=== PATIENT | male | born 1990 | race African-American/Black ===

== ENCOUNTER 2025-04-16 17:54 | Emergency (ER) | payer OTHER, SELFPAY ==
[2025-04-16] VITALS (10 sets, daily range): BP systolic 139–161; BP diastolic 71–86; PULSE 93–104; RESP 20; TEMP 36.9; O2SAT 91–96; BMI 39.5
--- NOTE | 2025-04-16 18:03 | ED.GENADULT ---
HPI - General Adult <Ren Rojas MD - Last Filed: 04/17/25 15:41> General Chief complaint: Extremity Injury, Lower Stated complaint: L Leg Pain Time Seen by Provider: 04/16/25 18:02 History of Present Illness HPI narrative: 34-year-old male with left buttock and posterior leg pain for the last 3 days, was stretching and felt onset of pain on Thursday night, presented to emergency department in [place], was given a number of shots, does not recall imaging being done, was eventually discharged home on oxycodone. He has run out of the pain medication, has significant pain. He does not have weakness or numbness of the legs. No incontinence of urine or stool. No previous back injections or surgical procedures. Related Data Previous Rx's ?Medication ?Instructions ?Recorded gabapentin 300 mg capsule 300 mg PO TID #30 caps 04/17/25 oxycodone 5 mg tablet 5 mg PO QID PRN pain #14 tabs 04/17/25 prednisone 10 mg tablets in a dose See Rx Instructions PO .COMPLEX 04/17/25 pack #21 ea Allergies Allergy/AdvReac Type Severity Reaction Status Date / Time No Known Drug Allergies Allergy Verified 04/16/25 17:57 Patient History <Ren Rojas MD - Last Filed: 04/17/25 15:41> Social History Smoking Status: Never smoker Exam <Ren Rojas MD - Last Filed: 04/17/25 15:41> Narrative Exam Narrative: GENERAL: Well-developed patient, in moderate-severe distress, right lateral decubitus position of comfort HEAD: Atraumatic. Normocephalic. EYES: Pupils equal round and reactive. Extraocular motions intact. No scleral icterus. No injection or drainage. ENT: Nose without bleeding, purulent drainage. Throat without erythema, tonsillar hypertrophy or exudate. Airway patent. NECK: Trachea midline. Non tender CARDIOVASCULAR: Regular rate and rhythm without murmurs, gallops, or rubs. RESPIRATORY: Clear to auscultation. Breath sounds equal bilaterally. No wheezes, rales, or rhonchi. GASTROINTESTINAL: Abdomen soft, non-tender, nondistended. EXTREMITIES: No edema or joint tenderness. BACK: Nontender without deformity or crepitance. No flank tenderness. NEURO: AOx3. Motor functions grossly nonfocal SKIN: No rash or erythema of visible areas Initial Vital Signs Initial Vital Signs: Vital Signs Temperature 98.4 F 04/16/25 17:58 Pulse Rate 104 H 04/16/25 17:58 Respiratory Rate 20 04/16/25 17:58 Blood Pressure 141/86 H 04/16/25 17:58 Pulse Oximetry 96 04/16/25 17:58 Oxygen Delivery Method Room Air 04/16/25 17:58 <Maday Valdes DO - Last Filed: 04/17/25 10:20> Initial Vital Signs Initial Vital Signs: Vital Signs Temperature 98.4 F 04/16/25 17:58 Pulse Rate 104 H 04/16/25 17:58 Respiratory Rate 20 04/16/25 17:58 Blood Pressure 141/86 H 04/16/25 17:58 Pulse Oximetry 96 04/16/25 17:58 Oxygen Delivery Method Room Air 04/16/25 17:58 Course <Ren Rojas MD - Last Filed: 04/17/25 15:41> Orders Ordered: Discontinued Medications Bacitracin (Bacitracin Oint 0.9 Gm Pckt) 2 applic TOP NOW ONE Stop: 04/16/25 20:38 Last Admin: 04/16/25 20:39 Dose: Not Given Documented By: BROOKS Dexamethasone (Dexamethasone 10 Mg/Ml Vial) 10 mg IV NOW ONE Stop: 04/16/25 18:12 Last Admin: 04/16/25 19:18 Dose: 10 mg Documented By: BROOKS Diazepam (Diazepam 10 Mg/2 Ml Syringe) 5 mg IV NOW ONE Stop: 04/16/25 18:12 Last Admin: 04/16/25 19:20 Dose: 5 mg Documented By: BROOKS Hydromorphone HCl (Hydromorphone 1 Mg Inj) 1 mg IV NOW ONE Stop: 04/16/25 18:12 Last Admin: 04/16/25 19:15 Dose: 1 mg Documented By: BROOKS Hydromorphone HCl (Hydromorphone 0.5 Mg Inj) 0.5 mg IV NOW ONE Stop: 04/16/25 21:06 Last Admin: 04/16/25 21:15 Dose: 0.5 mg Documented By: BROOKS Hydromorphone HCl (Hydromorphone 0.5 Mg Inj) 0.5 mg IV NOW ONE Stop: 04/17/25 04:44 Last Admin: 04/17/25 05:10 Dose: 0.5 mg Documented By: BURKE Hydromorphone HCl (Hydromorphone 1 Mg Inj) 1 mg IV NOW ONE Stop: 04/17/25 07:29 Last Admin: 04/17/25 07:38 Dose: 1 mg Documented By: MORIAH Sodium Chloride (Normal Saline 0.9%) 1,000 mls @ 1,000 mls/hr IV BOLUS PRN PRN Reason: Fluid replacement Last Infusion: 04/16/25 20:21 Dose: Infused Documented By: Admin: 04/16/25 19:29 Dose: 1,000 mls/hr Documented By: BROOKS Acetaminophen (Ofirmev) 1,000 mg in 100 mls @ 400 mls/hr IV NOW ONE Stop: 04/17/25 04:29 Last Infusion: 04/17/25 07:34 Dose: Infused Documented By: Admin: 04/17/25 05:09 Dose: 400 mls/hr Documented By: BURKE Ketorolac Tromethamine (Ketorolac 30 Mg/Ml Vial) 15 mg IV NOW ONE Stop: 04/16/25 18:12 Last Admin: 04/16/25 19:18 Dose: 15 mg Documented By: BROOKS Ketorolac Tromethamine (Ketorolac 30 Mg/Ml Vial) 15 mg IV NOW ONE Stop: 04/17/25 07:29 Last Admin: 04/17/25 07:37 Dose: 15 mg Documented By: MORIAH Methocarbamol (Methocarbamol 500 Mg Tablet) 500 mg PO NOW ONE Stop: 04/16/25 23:58 Last Admin: 04/17/25 00:05 Dose: 500 mg Documented By: BURKE Ondansetron HCl (Ondansetron 4 Mg/2 Ml Inj) 4 mg IV NOW ONE Stop: 04/16/25 18:12 Last Admin: 04/16/25 19:29 Dose: Not Given Documented By: BROOKS Vital Signs Vital signs: Vital Signs - 8 hr 04/17/25 02:30 04/17/25 02:30 04/17/25 02:30 Temperature Pulse Rate 97 H Respiratory Rate Blood Pressure 157/78 H 157/78 H Pulse Oximetry 95 Oxygen Delivery Method Room Air 04/17/25 03:00 04/17/25 03:00 04/17/25 03:30 Temperature Pulse Rate 93 H 102 H Respiratory Rate 18 Blood Pressure 159/82 H Pulse Oximetry 96 95 Oxygen Delivery Method Room Air 04/17/25 04:00 04/17/25 04:30 04/17/25 05:00 Temperature Pulse Rate 99 H 92 H 83 Respiratory Rate Blood Pressure Pulse Oximetry 95 95 96 Oxygen Delivery Method 04/17/25 05:14 04/17/25 05:14 04/17/25 05:30 Temperature Pulse Rate 90 89 Respiratory Rate 18 Blood Pressure 162/80 H Pulse Oximetry 95 90 L Oxygen Delivery Method Room Air 04/17/25 05:30 04/17/25 07:35 Temperature 97.8 F Pulse Rate Respiratory Rate Blood Pressure 139/77 Pulse Oximetry Oxygen Delivery Method <Maday Valdes DO - Last Filed: 04/17/25 10:20> Orders Ordered: Discontinued Medications Bacitracin (Bacitracin Oint 0.9 Gm Pckt) 2 applic TOP NOW ONE Stop: 04/16/25 20:38 Last Admin: 04/16/25 20:39 Dose: Not Given Documented By: BROOKS Dexamethasone (Dexamethasone 10 Mg/Ml Vial) 10 mg IV NOW ONE Stop: 04/16/25 18:12 Last Admin: 04/16/25 19:18 Dose: 10 mg Documented By: BROOKS Diazepam (Diazepam 10 Mg/2 Ml Syringe) 5 mg IV NOW ONE Stop: 04/16/25 18:12 Last Admin: 04/16/25 19:20 Dose: 5 mg Documented By: BROOKS Hydromorphone HCl (Hydromorphone 1 Mg Inj) 1 mg IV NOW ONE Stop: 04/16/25 18:12 Last Admin: 04/16/25 19:15 Dose: 1 mg Documented By: BROOKS Hydromorphone HCl (Hydromorphone 0.5 Mg Inj) 0.5 mg IV NOW ONE Stop: 04/16/25 21:06 Last Admin: 04/16/25 21:15 Dose: 0.5 mg Documented By: BROOKS Hydromorphone HCl (Hydromorphone 0.5 Mg Inj) 0.5 mg IV NOW ONE Stop: 04/17/25 04:44 Last Admin: 04/17/25 05:10 Dose: 0.5 mg Documented By: BURKE Hydromorphone HCl (Hydromorphone 1 Mg Inj) 1 mg IV NOW ONE Stop: 04/17/25 07:29 Last Admin: 04/17/25 07:38 Dose: 1 mg Documented By: MORIAH Sodium Chloride (Normal Saline 0.9%) 1,000 mls @ 1,000 mls/hr IV BOLUS PRN PRN Reason: Fluid replacement Last Infusion: 04/16/25 20:21 Dose: Infused Documented By: Admin: 04/16/25 19:29 Dose: 1,000 mls/hr Documented By: BROOKS Acetaminophen (Ofirmev) 1,000 mg in 100 mls @ 400 mls/hr IV NOW ONE Stop: 04/17/25 04:29 Last Infusion: 04/17/25 07:34 Dose: Infused Documented By: Admin: 04/17/25 05:09 Dose: 400 mls/hr Documented By: BURKE Ketorolac Tromethamine (Ketorolac 30 Mg/Ml Vial) 15 mg IV NOW ONE Stop: 04/16/25 18:12 Last Admin: 04/16/25 19:18 Dose: 15 mg Documented By: BROOKS Ketorolac Tromethamine (Ketorolac 30 Mg/Ml Vial) 15 mg IV NOW ONE Stop: 04/17/25 07:29 Last Admin: 04/17/25 07:37 Dose: 15 mg Documented By: MORIAH Methocarbamol (Methocarbamol 500 Mg Tablet) 500 mg PO NOW ONE Stop: 04/16/25 23:58 Last Admin: 04/17/25 00:05 Dose: 500 mg Documented By: BURKE Ondansetron HCl (Ondansetron 4 Mg/2 Ml Inj) 4 mg IV NOW ONE Stop: 04/16/25 18:12 Last Admin: 04/16/25 19:29 Dose: Not Given Documented By: BROOKS Vital Signs Vital signs: Vital Signs - 8 hr 04/17/25 02:30 04/17/25 02:30 04/17/25 02:30 Temperature Pulse Rate 97 H Respiratory Rate Blood Pressure 157/78 H 157/78 H Pulse Oximetry 95 Oxygen Delivery Method Room Air 04/17/25 03:00 04/17/25 03:00 04/17/25 03:30 Temperature Pulse Rate 93 H 102 H Respiratory Rate 18 Blood Pressure 159/82 H Pulse Oximetry 96 95 Oxygen Delivery Method Room Air 04/17/25 04:00 04/17/25 04:30 04/17/25 05:00 Temperature Pulse Rate 99 H 92 H 83 Respiratory Rate Blood Pressure Pulse Oximetry 95 95 96 Oxygen Delivery Method 04/17/25 05:14 04/17/25 05:14 04/17/25 05:30 Temperature Pulse Rate 90 89 Respiratory Rate 18 Blood Pressure 162/80 H Pulse Oximetry 95 90 L Oxygen Delivery Method Room Air 04/17/25 05:30 04/17/25 07:35 Temperature 97.8 F Pulse Rate Respiratory Rate Blood Pressure 139/77 Pulse Oximetry Oxygen Delivery Method Medical Decision Making <Ren Rojas MD - Last Filed: 04/17/25 15:41> Lab Data Lab results reviewed: Yes I reviewed the patient's lab results. Lab results narrative: Urine dip negative. 04/16/25 18:52 04/16/25 18:52 Labs: Lab Results 04/16/25 Range/Units 18:52 WBC 14.3 H (4.5-11.0) X10^3/uL RBC 4.67 (4.5-5.9) X10^6/uL Hgb 13.5 (13.5-17.5) g/dL Hct 40.4 L (41-53) % MCV 86.5 (80-100) fL MCH 28.8 (26-34) PG MCHC 33.3 (30-36) % RDW 12.6 (11.6-14.8) % Plt Count 421 H (150-400) X10^3/uL Neut % (Auto) Not Reportable Lymph % (Auto) Not Reportable Charl[place] % (Auto) Not Reportable Eos % (Auto) Not Reportable Baso % (Auto) Not Reportable Lymph # (Auto) Not Reportable Charlton # (Auto) Not Reportable Baso # (Auto) Not Reportable Total Counted 100 Seg Neutrophils % 60.0 (38-70) % Band Neutrophils % 1.0 L (3-7) % Lymphocytes % (Manual) 28.0 (25-45) % Monocytes % (Manual) 10.0 (2-11) % Basophils % (Manual) 1.0 (0-1) % Neutrophils # (Manual) 8723 H (0171-0211) /uL RBC Morphology Normal morphology Sodium 139 (137-145) mmol/L Potassium 3.6 (3.4-5.1) mmol/L Chloride 104 (98-107) mmol/L Carbon Dioxide 19 L (22-32) mmol/L BUN 21 H (9-20) mg/dL Creatinine 1.04 (0.66-1.25) mg/dL Estimated GFR > 60 (>60) mL/min BUN/Creatinine Ratio 20.2 (6-22) Glucose 83 (70-99) mg/dL Calcium 9.4 (8.4-10.2) mg/dL Total Bilirubin 0.6 (0.2-1.3) mg/dL AST 51 (17-59) IU/L ALT 52 H (<50) IU/L Alkaline Phosphatase 74 (38-126) U/L Total Protein 7.9 (6.3-8.2) g/dL Albumin 4.9 (3.5-5.0) g/dL Globulin 3.0 (1.7-4.1) g/dL Albumin/Globulin Ratio 1.6 (1.0-2.8) Lipase 25 (23-300) U/L Urine RBC 0-1/hpf (0-5/HPF) Urine WBC 0-1/hpf (0-5/HPF) Ur Squamous Epith Cells 0-1 /hpf (0-5/HPF) Urine Bacteria Occasional (0-1) (None) Urine Mucus 2+ H (Negative) Vol Urine Centrifuged 10ml (spun) Urine Dip Bedside Urine Glucose Negative Bedside Urine Bilirubin - Negative Bedside Urine Ketone - Negative Urine Specific [place] 1.030 Bedside Urine Occult Blood + Bedside Urine pH 6.0 Bedside Urine Protein +/- 15 Bedside Urine Urobilinogen - Negative Bedside Urine Nitrite - Negative Bedside Urine Leukocytes - Negative Esterase Point of care testing: Urine Dip Bedside Urine Glucose Negative Bedside Urine Bilirubin - Negative Bedside Urine Ketone - Negative Urine Specific [place] 1.030 Bedside Urine Occult Blood + Bedside Urine pH 6.0 Bedside Urine Protein +/- 15 Bedside Urine Urobilinogen - Negative Bedside Urine Nitrite - Negative Bedside Urine Leukocytes - Negative Esterase Imaging Data CT lumbar spine: Radiologist's Impression: Close Lumbar Spine CT (Signed) Laverne Contreras - 04/16/[address] [address] [address] Scan Report Signed Patient: Jose Rafael Chua MR#: [id number] : 1990 Acct:[id number] Age/Sex: 34 / M Date of Service: 04/16/25 Loc: ED Accession Number: [id number] Procedure: CT lumbar spine wo con Ordering Provider: Ren Rojas MD PROCEDURE: CT LUMBAR SPINE WO CON INDICATIONS: low back pain, persisting TECHNIQUE: Noncontrast 3 mm thick sections acquired from the T12 level to the sacrum. Sagittal and coronal reformats were constructed. For radiation dose reduction, the following was used: automated exposure control. COMPARISON: None. FINDINGS: Image quality: Excellent. Bones: There is normal bony alignment. No acute vertebral body compression fractures. No suspicious lytic or blastic bony lesions. No pars defects. Minimal disc bulge at L3-4, L4-5 as well as L5-S1. Ails-io-uqyfzixp spinal stenosis is present at these levels. Vgyg-[id number] left and minimal right foraminal narrowing at L5-S1. Soft tissues: No retroperitoneal masses or hematomas. Visualized aorta is normal in caliber. IMPRESSION: Early degenerative changes most prominent at L5-S1 as above. Dictated by: Laverne Contreras M.D. on 04/16/2025 at 19:13 Approved by: Laverne Contreras M.D. on 04/16/2025 at 19:15 [facility] Narrative Medical decision making narrative: 34-year-old male with left buttock and left lower extremity pain after stretching 3 days ago, seen in outside facility, no imaging recalled, neurovascularly intact, afebrile, sirs screen negative. No sciatic groove tenderness. Patient in moderate-severe distress secondary to Left low back and left leg pain, in preferred position right lateral decubitus position of comfort. No tenderness lumbar spinal or paraspinal musculature. IV Dilaudid/Zofran, Toradol, Valium, Decadron. Requests records from [place] emergency department. CT lumbar spine, early DJD changes L5-S1. See radiology report. 2229, patient sleeping after polypharmacy, low sats, supplemental oxygen. We will further observe for metabolism sedating agents. Still having pain. CT abdomen and pelvis ordered. Keep NPO. IV acetaminophen. CT abdomen and pelvis with IV contrast. Impressions: ?No evidence of colitis, diverticulitis, bowel obstruction, obstructive uropathy, or acute appendicitis. Incidental findings as detailed.? No bony abnormalities. See tele radiology report. 0530, Still having pain. IV Dilaudid. MRI Lsp ordered when available later this morning 0700, MRI to be done later this morning, signed out to Dr Valdes. 04/17/25 Dr. Valdes @ 0803: patient is seen and evaluated by myself. Patient was here overnight waiting for MR. When patient went to MRI he does not physically fit in the machine. Reviewed his workup. Patient notes he was had some back issues in the past this episode started with stretching Thursday and proceeded throughout the weekend. He notes numbness and tingling increased pain particularly when standing attempting to ambulate. He has been most comfortable lying on his belly overnight. Patient notes he was had normal range of motion Of her lower extremity. He was noted some paresthesias but no complete loss of sensation. Denies any saddle anesthesia.he denies any incontinence. Patient denies any fevers. Does not have any history of IV drug use or other high-risk factors. After discussion patient feels comfortable with discharge home with potential outpatient follow up with MR in open machine as patient does not fit and ours. he does have follow up with primary care through the [facility]. Has not had any interventions on his back in the past. After discussion we will send oral narcotics, steroids and pain medication with strict return precautions. Patient notes that he does have a history of myocardial infarction does take daily medications but has a he was at home and states he would prefer to take his home doses. He states he feels comfortable with this plan at this time. <Maday Valdes DO - Last Filed: 04/17/25 10:20> Lab Data Labs: Lab Results 04/16/25 Range/Units 18:52 WBC 14.3 H (4.5-11.0) X10^3/uL RBC 4.67 (4.5-5.9) X10^6/uL Hgb 13.5 (13.5-17.5) g/dL Hct 40.4 L (41-53) % MCV 86.5 (80-100) fL MCH 28.8 (26-34) PG MCHC 33.3 (30-36) % RDW 12.6 (11.6-14.8) % Plt Count 421 H (150-400) X10^3/uL Neut % (Auto) Not Reportable Lymph % (Auto) Not Reportable Charlton % (Auto) Not Reportable Eos % (Auto) Not Reportable Baso % (Auto) Not Reportable Lymph # (Auto) Not Reportable Charlton # (Auto) Not Reportable Baso # (Auto) Not Reportable Total Counted 100 Seg Neutrophils % 60.0 (38-70) % Band Neutrophils % 1.0 L (3-7) % Lymphocytes % (Manual) 28.0 (25-45) % Monocytes % (Manual) 10.0 (2-11) % Basophils % (Manual) 1.0 (0-1) % Neutrophils # (Manual) 8723 H (6694-6421) /uL RBC Morphology Normal morphology Sodium 139 (137-145) mmol/L Potassium 3.6 (3.4-5.1) mmol/L Chloride 104 (98-107) mmol/L Carbon Dioxide 19 L (22-32) mmol/L BUN 21 H (9-20) mg/dL Creatinine 1.04 (0.66-1.25) mg/dL Estimated GFR > 60 (>60) mL/min BUN/Creatinine Ratio 20.2 (6-22) Glucose 83 (70-99) mg/dL Calcium 9.4 (8.4-10.2) mg/dL Total Bilirubin 0.6 (0.2-1.3) mg/dL AST 51 (17-59) IU/L ALT 52 H (<50) IU/L Alkaline Phosphatase 74 (38-126) U/L Total Protein 7.9 (6.3-8.2) g/dL Albumin 4.9 (3.5-5.0) g/dL Globulin 3.0 (1.7-4.1) g/dL Albumin/Globulin Ratio 1.6 (1.0-2.8) Lipase 25 (23-300) U/L Urine RBC 0-1/hpf (0-5/HPF) Urine WBC 0-1/hpf (0-5/HPF) Ur Squamous Epith Cells 0-1 /hpf (0-5/HPF) Urine Bacteria Occasional (0-1) (None) Urine Mucus 2+ H (Negative) Vol Urine Centrifuged 10ml (spun) Urine Dip Bedside Urine Glucose Negative Bedside Urine Bilirubin - Negative Bedside Urine Ketone - Negative Urine Specific [place] 1.030 Bedside Urine Occult Blood + Bedside Urine pH 6.0 Bedside Urine Protein +/- 15 Bedside Urine Urobilinogen - Negative Bedside Urine Nitrite - Negative Bedside Urine Leukocytes - Negative Esterase Point of care testing: Urine Dip Bedside Urine Glucose Negative Bedside Urine Bilirubin - Negative Bedside Urine Ketone - Negative Urine Specific [place] 1.030 Bedside Urine Occult Blood + Bedside Urine pH 6.0 Bedside Urine Protein +/- 15 Bedside Urine Urobilinogen - Negative Bedside Urine Nitrite - Negative Bedside Urine Leukocytes - Negative Esterase MDM Narrative Medical decision making narrative: 34-year-old male with left buttock and left lower extremity pain after stretching 3 days ago, seen in alternate facility, apparently no imaging done, neurovascularly intact, afebrile, sirs screen negative. No sciatic groove tenderness. Patient in moderate-severe distress secondary to pain and preferred position right lateral decubitus position. No tenderness lumbar spinal or paraspinal musculature. IV Dilaudid/Zofran, Toradol, Valium, Decadron. Requests records from [place] emergency department. CT lumbar spine, early DJD changes L5-S1 only. See radiology report. 2229, patient sleeping after polypharmacy, low sats, supplemental oxygen. We will further observe for metabolism sedating agents. Still having pain. CT abdomen and pelvis ordered. Keep NPO. IV acetaminophen. CT abdomen and pelvis with IV contrast. Impressions: ?No evidence of colitis, diverticulitis, bowel obstruction, obstructive uropathy, or acute appendicitis. Incidental findings as detailed.? No bony abnormalities. See tele radiology report. 04/17/25 Dr. Valdes @ 0803: patient is seen and evaluated by myself. Patient was here overnight waiting for MR. When patient went to MRI he does not physically fit in the machine. Reviewed his workup. Patient notes he was had some back issues in the past this episode started with stretching Thursday and proceeded throughout the weekend. He notes numbness and tingling increased pain particularly when standing attempting to ambulate. He has been most comfortable lying on his belly overnight. Patient notes he was had normal range of motion Of her lower extremity. He was noted some paresthesias but no complete loss of sensation. Denies any saddle anesthesia.he denies any incontinence. Patient denies any fevers. Does not have any history of IV drug use or other high-risk factors. After discussion patient feels comfortable with discharge home with potential outpatient follow up with MR in open machine as patient does not fit and ours. he does have follow up with primary care through the [employer] [facility]. Has not had any interventions on his back in the past. After discussion we will send oral narcotics, steroids and pain medication with strict return precautions. Patient notes that he does have a history of myocardial infarction does take daily medications but has a he was at home and states he would prefer to take his home doses. He states he feels comfortable with this plan at this time. Discharge Plan Departure Patient Disposition: Home Clinical Impression: Lumbar radiculopathy Instructions: DI for Lumbar Radiculopathy Activity Restrictions/Additional Instructions: I do think you would benefit from an MRI, some facilities have an open MRI. the CT of your lumbar spine showed some early degenerative changes most prominent L5-S1 there was minimal disc bulge at L3-L4 L4-L5 as well as L5-S1 and mxwi-nm-pxokgybl spinal stenosis present at these levels with zemk-rp-[id number] left and minimal right foraminal narrowing at L5-S1. You also had a CT of your abdomen pelvis which showed gallstones but no other acute changes. You can take acetaminophen up to a 1000 mg every 6 hours, I would also recommend ibuprofen to 600 mg every 6 hours. Take oral narcotic pain medication 1-2 tablets every 6 hours as needed. This medication can make you sleepy do not drive, perform hazardous activities or make any major decisions while taking it. This medication will make you constipated please take a stool softener once to twice daily until stools are soft and regular. Take steroids until completed. You can take gabapentin 1 tablet every 8 hours as needed for the numbness / tingling pain, this medication can be titrated upwards by your physician. Prescription sent to [facility] in [place]. return or go to the closest facility if you develop fevers, rapidly worsening symptoms, new weakness or inability to lift or move your leg, foot or knee, loss of sensation, loss of bowel or bladder control, if you can not feel your groin or other new or concerning changes. Prescriptions: New prednisone 10 mg tablets,dose pack See Rx Instructions .ROUTE .COMPLEX Qty: 21 0RF Rx Instructions: 6 tabs p.o. x1 day, then 5 tabs p.o. x1 day, then 4 tablets p.o. x1 day, then 3 tabs p.o. x1 day, then 2 tabs p.o. x1 day, then 1 tab p.o. x1 day gabapentin 300 mg capsule 300 mg PO TID Qty: 30 0RF oxycodone 5 mg tablet 5 mg PO QID PRN (Reason: pain) Qty: 14 0RF Referrals: Norris Moon DO [Physician, Physiatry] Stand Alone Forms: Patient Portal/API, Work Release Note
--- NOTE | 2025-04-16 18:31 | PC.NURSE ---
Pt went to chiropractor on Thursday and came home to stretch and then tried to get up and had a sudden intense pain going down his left leg to calf to heel and describes it as if his leg exploded. He states that he had a BM yesterday at 2022 and also urinated but has not been able to urinate since and says his bladder feels full but he cant go due to not being able to feel it coming out.
--- NOTE | 2025-04-16 18:45 | DI.CT.S_ITS ---
PROCEDURE: CT LUMBAR SPINE WO CON INDICATIONS: low back pain, persisting TECHNIQUE: Noncontrast 3 mm thick sections acquired from the T12 level to the sacrum. Sagittal and coronal reformats were constructed. For radiation dose reduction, the following was used: automated exposure control. COMPARISON: None. FINDINGS: Image quality: Excellent. Bones: There is normal bony alignment. No acute vertebral body compression fractures. No suspicious lytic or blastic bony lesions. No pars defects. Minimal disc bulge at L3-4, L4-5 as well as L5-S1. Lvak-on-zuqhprhf spinal stenosis is present at these levels. Bvfz-xd-hdwmfmxq left and minimal right foraminal narrowing at L5-S1. Soft tissues: No retroperitoneal masses or hematomas. Visualized aorta is normal in caliber. IMPRESSION: Early degenerative changes most prominent at L5-S1 as above. Dictated by: Laverne Contreras M.D. on 04/16/2025 at 19:13 Approved by: Laverne Contreras M.D. on 04/16/2025 at 19:15
[2025-04-16] MEDS: HYDROMORPHONE 1 MG INJ IV (19:15)
[2025-04-16] MEDS: KETOROLAC 30 MG/ML VIAL 15 MG IV (19:18)
[2025-04-16] MEDS: DEXAMETHASONE 10 MG/ML VIAL IV (19:18)
[2025-04-16] MEDS: diazePAM 10 MG/2 ML SYRINGE 5 MG IV (19:20)
[2025-04-16 19:21] LABS: Bacteria Urine Occasional (0-1); Mucus Urine 2+ (Negative); RBC Urine 0-1/HPF (0-5/HPF); Squamous Epithelial Cell Urine 0-1 /HPF (0-5/HPF); Urine Volume 10mL (spun); WBC Urine 0-1/HPF (0-5/HPF)
[2025-04-16] MEDS: SODIUM CHLORIDE 0.9% 1,000 ML 1000 ML IV (19:29)
[2025-04-16] MEDS: HYDROMORPHONE 0.5 MG INJ IV (21:15)
[2025-04-17] VITALS (14 sets, daily range): BP systolic 129–162; BP diastolic 72–82; PULSE 83–102; RESP 18; TEMP 36.6; O2SAT 90–96
[2025-04-17] MEDS: methocarbamoL 500 MG TABLET PO (00:05)
--- NOTE | 2025-04-17 03:02 | DI.CT.S_ITS ---
PROCEDURE: CT ABDOMEN PELVIS W CON INDICATIONS: back pain TECHNIQUE: After the administration of intravenous contrast, axial sections acquired from the lung bases to the pubic symphysis. Coronal and sagittal reformats were performed. For radiation dose reduction, the following was used: automated exposure control, adjustment of mA and/or kV according to patient size. COMPARISON: None. FINDINGS: Image quality: Diagnostic Lower chest: Lung bases are unremarkable. Normal heart size. Liver: Suspect hepatic steatosis. Gallbladder and biliary system: Cholelithiasis, nondilated Pancreas: No ductal dilation Spleen: Nonenlarged Adrenals: No discrete nodules Kidneys: No solid mass. No hydronephrosis. Vessels and lymph nodes: The main portal vein is patent. No abdominal aortic aneurysm. No enlarged lymph nodes by size criteria. Bowel and peritoneum: No small bowel obstruction. No drainable abscess or ascites. Nondilated appendix. Body wall: Unremarkable Pelvis: Bladder is unremarkable. Bones: No aggressive appearing osseous abnormality. Mild spinal degenerative changes, particularly at L4-L5 and L5-S1. IMPRESSION: No acute abdominal pelvic abnormality. Cholelithiasis. No acute fracture or traumatic subluxation of the lumbar spine. Degenerative changes are seen particularly L4-S1, which could be better evaluated using MRI if necessary. Agree with preliminary report. Dictated by: Marlon Leong M.D. on 04/17/2025 at 7:43 Approved by: Marlon Leong M.D. on 04/17/2025 at 7:47
--- NOTE | 2025-04-17 03:07 | PC.NURSE ---
Pt refusing to attempt ambulation trial, states It's impossible! Dr. Rojas made aware.
--- NOTE | 2025-04-17 03:16 | PC.NURSE ---
Pt to imaging via ED stretcher with office automation technician.
[2025-04-17 03:28] LABS: Alanine Aminotransferase 52 IU/L (<50); Albumin 4.9 g/dL (3.5-5.0); Albumin Globulin Ratio 1.6 (1.0-2.8); Alkaline Phosphatase 74 U/L (38-126); Aspartate Aminotransferase 51 IU/L (17-59); BUN Creatinine Ratio 20.2 (6-22); Bilirubin Total 0.6 mg/dL (0.2-1.3); Blood Urea Nitrogen 21 mg/dL (9-20); Calcium 9.4 mg/dL (8.4-10.2); Carbon Dioxide 19 mmol/L (22-32); Chloride 104 mmol/L (98-107); Estimated Glomerular Filt Rate > 60 mL/min (>60); Glucose 83 mg/dL (70-99); HEMOLYSIS < 15 (0-50); Lipase 25 U/L (23-300); Potassium 3.6 mmol/L (3.4-5.1); Sodium 139 mmol/L (137-145); Total Protein 7.9 g/dL (6.3-8.2)
[2025-04-17 03:30] LABS: Hematocrit 40.4 % (41-53); Hemoglobin 13.5 g/dL (13.5-17.5); Mean Corpuscular HGB Conc 33.3 % (30-36); Mean Corpuscular Hemoglobin 28.8 PG (26-34); Mean Corpuscular Volume 86.5 fL (80-100); Platelet Count 421 X10^3/uL (150-400); Red Blood Cell Count 4.67 X10^6/uL (4.5-5.9); Red Cell Distribution Width 12.6 % (11.6-14.8); White Blood Cell Count 14.3 X10^3/uL (4.5-11.0)
[2025-04-17 03:31] LABS: Add Manual Diff / Slide Review YES
[2025-04-17 03:50] LABS: Neutrophils Absolute Manual 8723 /uL (3000-5900); RBC Morphology Normal Morphology; Total Cells Counted 100
[2025-04-17] MEDS: ACETAMINOPHEN IV 1,000 MG/100 ML VIAL 400 MG IV (05:09)
[2025-04-17] MEDS: HYDROMORPHONE 0.5 MG INJ IV (05:10)
[2025-04-17] MEDS: KETOROLAC 30 MG/ML VIAL 15 MG IV (07:37)
[2025-04-17] MEDS: HYDROMORPHONE 1 MG INJ IV (07:38)
== END 2025-04-17 08:57 | disposition home or self-care (01) ==
PROVIDERS: Emergency Medicine; Emergency Provider Emergency Medicine
DX: M54.16 Radiculopathy, lumbar region (principal)
CPT/HCPCS: 36415; 51798; 72131; 74177; 80053; 81003; 81015; 83690; 85007; 85025; 87086; 96361; 96365; 96366; 96375; 96376; 99284; J0131; J1100; J1171; J1885; J3360; Q9967

== ENCOUNTER 2025-04-19 16:05 | Emergency (ER) | payer OTHER, SELFPAY ==
[2025-04-19] VITALS (13 sets, daily range): BP systolic 120–170; BP diastolic 81–97; PULSE 84–125; RESP 16–20; TEMP 36.2; O2SAT 95–98; BMI 39.5
--- NOTE | 2025-04-19 16:28 | ED.BACK ---
HPI - Back Pain/Injury <Lavon Valdez, - Last Filed: 04/20/25 17:10> General Chief Complaint: Back Pain/Injury Stated Complaint: Sent from PCP Time Seen by Provider: 04/19/25 16:19 History of Present Illness HPI Narrative: Patient is a 34-year-old male history of low back pain, states that he was seen here recently and had a CT scan was supposed to get a MRI but was unable to do this due to anxiety. Presenting for persistent 08/04 low back pain. States that he went to his PCP and was reporting that he was having some difficulty urinating however he states that it is not true acute urinary retention he states that he just has to push hard. Also stating that there was some hematuria. Patient denies any trauma or falls not on any blood thinners. Patient is able to stand bear weight ambulate here but was using a walker. He denies any new symptoms at this time denies any bowel incontinence or retention. States he had a bowel movement this morning. He denies any numbness weakness tingling to the lower extremities denies any saddle paresthesias Related Data Previous Rx's ?Medication ?Instructions ?Recorded gabapentin 300 mg capsule 300 mg PO TID #30 caps 04/17/25 oxycodone 5 mg tablet 5 mg PO QID PRN pain #14 tabs 04/17/25 prednisone 10 mg tablets in a dose See Rx Instructions PO .COMPLEX 04/17/25 pack #21 ea methocarbamol 750 mg tablet 750 mg PO TID #30 tabs 04/19/25 Allergies Allergy/AdvReac Type Severity Reaction Status Date / Time No Known Drug Allergies Allergy Verified 04/16/25 17:57 Review of Systems <Lavon Valdez, - Last Filed: 04/20/25 17:10> Review of Systems Narrative: General: Denies fever, chills, weight loss HEENT: Denies headache, eye drainage, eye irritation, head trauma, sore throat, voice change Cardiovascular: Denies any chest pain, palpitations, tachycardia Respiratory: Denies any shortness of breath, cough, wheeze, stridor GI/: Denies any abdominal pain, nausea, vomiting, diarrhea, bright red blood per rectum, melanotic stools, urinary frequency, urinary retention, dysuria, hematuria MSK: Positive low back pain Skin: Denies any rashes, lesions, discoloration Neuro: Denies any headache, lightheadedness, dizziness, fainting, weakness Psych: Denies SI/HI Exam <Lavon Valdez DO - Last Filed: 04/20/25 17:10> Narrative Exam Narrative: General: Cooperative, well-developed, not in acute distress HEENT: Normocephalic, atraumatic, PERRLA, normal sclera, eyelids normal Neck: Active full range of motion, atraumatic Chest: Normal to inspection, negative crepitus, no overlying erythema ecchymosis Respiratory: Normal respiratory effort, not in acute respiratory distress, clear to auscultation bilaterally negative cough, wheeze, tachypnea, rhonchi, rales Cardiology: Regular rate rhythm negative gallop, murmur, rubs GI/: No tenderness to palpation, soft, non rigid, normal to inspection, exam deferred MSK: Full active range of motion in all 4 extremities, atraumatic, no tenderness to palpation of any bony prominences, there is no tenderness to palpation of the midline lumbar spine mild reproducible tenderness to palpation in the gluteal region otherwise neurovascularly intact bilateral upper and lower extremities Skin: No rashes or lesions noted Neuro: Alert awake oriented x3, moves all 4 extremities spontaneously, cranial nerves intact, able to answer all questions appropriately follows commands appropriately Psych: Cooperative, negative suicidal or homicidal ideations Initial Vital Signs Initial Vital Signs: Vital Signs Temperature 97.1 F L 04/19/25 16:13 Pulse Rate 107 H 04/19/25 16:13 Respiratory Rate 16 04/19/25 16:13 Blood Pressure 170/91 H 04/19/25 16:13 Pulse Oximetry 97 04/19/25 16:13 Oxygen Delivery Method Room Air 04/19/25 16:13 <Ren Rojas MD - Last Filed: 04/20/25 02:16> Initial Vital Signs Initial Vital Signs: Vital Signs Temperature 97.1 F L 04/19/25 16:13 Pulse Rate 107 H 04/19/25 16:13 Respiratory Rate 16 04/19/25 16:13 Blood Pressure 170/91 H 04/19/25 16:13 Pulse Oximetry 97 04/19/25 16:13 Oxygen Delivery Method Room Air 04/19/25 16:13 Course <Lavon Valdez DO - Last Filed: 04/20/25 17:10> Orders Ordered: Discontinued Medications Dexamethasone (Dexamethasone 10 Mg/Ml Vial) 10 mg IV NOW ONE Stop: 04/19/25 16:32 Last Admin: 04/19/25 17:12 Dose: 10 mg Documented By: BT Diazepam (Diazepam 10 Mg/2 Ml Syringe) 5 mg IV NOW ONE Stop: 04/19/25 16:32 Last Admin: 04/19/25 17:10 Dose: 5 mg Documented By: BT Hydromorphone HCl (Hydromorphone 0.5 Mg Inj) 0.5 mg IV NOW ONE Stop: 04/19/25 17:49 Last Admin: 04/19/25 18:16 Dose: 0.5 mg Documented By: THU Lidocaine (Lidocaine 5% Patch) 1 each TOP NOW ONE Stop: 04/19/25 16:32 Last Admin: 04/19/25 17:24 Dose: Not Given Documented By: THU Methocarbamol (Methocarbamol 500 Mg Tablet) 750 mg PO NOW ONE Stop: 04/19/25 18:27 Last Admin: 04/19/25 18:35 Dose: 750 mg Documented By: JUDI Morphine Sulfate (Morphine 2 Mg/Ml Inj) 4 mg IV NOW ONE Stop: 04/19/25 16:32 Last Admin: 04/19/25 17:11 Dose: 4 mg Documented By: THU Vital Signs Vital signs: Vital Signs - 8 hr 04/19/25 18:21 04/19/25 18:21 04/19/25 18:30 Pulse Rate 88 90 Respiratory Rate Blood Pressure 145/81 H Pulse Oximetry 97 97 Oxygen Delivery Method 04/19/25 18:53 04/19/25 18:53 04/19/25 19:00 Pulse Rate 95 H 90 Respiratory Rate 16 Blood Pressure 157/97 H Pulse Oximetry 95 97 Oxygen Delivery Method 04/19/25 19:30 04/19/25 20:00 04/19/25 20:30 Pulse Rate 92 H 92 H 84 Respiratory Rate Blood Pressure Pulse Oximetry 97 96 96 Oxygen Delivery Method 04/19/25 20:32 04/19/25 20:32 04/19/25 21:00 Pulse Rate 95 H 93 H Respiratory Rate 20 18 Blood Pressure 169/95 H Pulse Oximetry 98 95 Oxygen Delivery Method Room Air Room Air 04/19/25 21:00 Pulse Rate Respiratory Rate Blood Pressure 120/89 Pulse Oximetry Oxygen Delivery Method <Ren Rojas MD - Last Filed: 04/20/25 02:16> Orders Ordered: Discontinued Medications Dexamethasone (Dexamethasone 10 Mg/Ml Vial) 10 mg IV NOW ONE Stop: 04/19/25 16:32 Last Admin: 04/19/25 17:12 Dose: 10 mg Documented By: BT Diazepam (Diazepam 10 Mg/2 Ml Syringe) 5 mg IV NOW ONE Stop: 04/19/25 16:32 Last Admin: 04/19/25 17:10 Dose: 5 mg Documented By: BT Hydromorphone HCl (Hydromorphone 0.5 Mg Inj) 0.5 mg IV NOW ONE Stop: 04/19/25 17:49 Last Admin: 04/19/25 18:16 Dose: 0.5 mg Documented By: BT Lidocaine (Lidocaine 5% Patch) 1 each TOP NOW ONE Stop: 04/19/25 16:32 Last Admin: 04/19/25 17:24 Dose: Not Given Documented By: BT Methocarbamol (Methocarbamol 500 Mg Tablet) 750 mg PO NOW ONE Stop: 04/19/25 18:27 Last Admin: 04/19/25 18:35 Dose: 750 mg Documented By: JUDI Morphine Sulfate (Morphine 2 Mg/Ml Inj) 4 mg IV NOW ONE Stop: 04/19/25 16:32 Last Admin: 04/19/25 17:11 Dose: 4 mg Documented By: BT Vital Signs Vital signs: Vital Signs - 8 hr 04/19/25 18:21 04/19/25 18:21 04/19/25 18:30 Pulse Rate 88 90 Respiratory Rate Blood Pressure 145/81 H Pulse Oximetry 97 97 Oxygen Delivery Method 04/19/25 18:53 04/19/25 18:53 04/19/25 19:00 Pulse Rate 95 H 90 Respiratory Rate 16 Blood Pressure 157/97 H Pulse Oximetry 95 97 Oxygen Delivery Method 04/19/25 19:30 04/19/25 20:00 04/19/25 20:30 Pulse Rate 92 H 92 H 84 Respiratory Rate Blood Pressure Pulse Oximetry 97 96 96 Oxygen Delivery Method 04/19/25 20:32 04/19/25 20:32 04/19/25 21:00 Pulse Rate 95 H 93 H Respiratory Rate 20 18 Blood Pressure 169/95 H Pulse Oximetry 98 95 Oxygen Delivery Method Room Air Room Air 04/19/25 21:00 Pulse Rate Respiratory Rate Blood Pressure 120/89 Pulse Oximetry Oxygen Delivery Method MDM - Back Pain/Injury <Lavon Valdez, - Last Filed: 04/20/25 17:10> Differential Diagnosis Differential diagnosis: Likely lumbar radiculopathy, sciatica and strain of lumbar region Lab Data 04/19/25 16:50 04/19/25 16:50 Labs: Lab Results 04/19/25 04/19/25 Range/Units 16:50 18:01 WBC 13.2 H (4.5-11.0) X10^3/uL RBC 4.43 L (4.5-5.9) X10^6/uL Hgb 12.5 L (13.5-17.5) g/dL Hct 38.0 L (41-53) % MCV 85.8 (80-100) fL MCH 28.3 (26-34) PG MCHC 33.0 (30-36) % RDW 12.3 (11.6-14.8) % Plt Count 412 H (150-400) X10^3/uL Neut % (Auto) 78.3 H (50-75) % Lymph % (Auto) 15.5 L (25-40) % [place] % (Auto) 5.5 (3-14) % Eos % (Auto) 0.1 L (2-4) % Baso % (Auto) 0.6 (0-2) % Neut # (Auto) 02560 H (8453-4660) /uL Lymph # (Auto) 2000 (3991-5350) /uL [place] # (Auto) 700 (0-900) /uL Eos # (Auto) 0 (0-450) /uL Baso # (Auto) 100 (0-100) /uL Sodium 140 (137-145) mmol/L Potassium 4.1 (3.4-5.1) mmol/L Chloride 107 (98-107) mmol/L Carbon Dioxide 23 (22-32) mmol/L BUN 17 (9-20) mg/dL Creatinine 0.87 (0.66-1.25) mg/dL Estimated GFR > 60 (>60) mL/min BUN/Creatinine Ratio 19.5 (6-22) Glucose 103 H (70-99) mg/dL Calcium 9.1 (8.4-10.2) mg/dL Total Bilirubin 0.7 (0.2-1.3) mg/dL AST 45 (17-59) IU/L ALT 40 (<50) IU/L Alkaline Phosphatase 59 (38-126) U/L Total Protein 7.9 (6.3-8.2) g/dL Albumin 4.7 (3.5-5.0) g/dL Globulin 3.2 (1.7-4.1) g/dL Albumin/Globulin Ratio 1.5 (1.0-2.8) Urine Color Yellow Urine Appearance Clear Urine pH 6.0 (4.5-8.0) Ur Specific [place] 1.025 (1.000-1.035) Urine Protein Trace H (Negative) Urine Glucose (UA) Negative (Negative) g/dL Urine Ketones Negative (NEGATIVE) Urine Occult Blood Trace-intact (Negative) Urine Nitrate Negative (Negative) Urine Bilirubin Negative (NEGATIVE) Urine Urobilinogen 4.0 H (0.2) E.U./dL Ur Leukocyte Esterase Negative (NEGATIVE) Urine RBC 0-1/hpf (0-5/HPF) Urine WBC 0-1/hpf (0-5/HPF) Ur Squamous Epith Cells 0-1 /hpf (0-5/HPF) Urine Bacteria Occasional (0-1) (None) Urine Mucus 2+ H (Negative) Ur Culture Indicated? Cult not indicated Vol Urine Centrifuged 10ml (spun) MDM Narrative Medical decision making narrative: Patient is a 34-year-old male with a history of low back pain presenting for exacerbation of this. He states that he has been seen here and worked up had CT scans that were negative was supposed to get an MRI by his primary care doctor however had an anxiety attack and was unable to complete this. He presents due to exacerbation of low back pain. He denies any cauda equina red flags. States that he feels like he has been having to push a little bit with urination but was also constipated until today. Had 3 bowel movement. 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 Review of symptoms does show that patient had a lumbar spine CT on 04/16/2025 as well as a abdomen and pelvis CT on 04/17/2025 both imaging showing no acute fracture or traumatic subluxation or acute findings, was noted degenerative changes around the L4-S1 otherwise unremarkable. He was able to stand bear weight ambulate unassisted here in the emergency department. He was given medication with significant improvement of his symptoms. 1747: Patient was re-evaluated, no new complaints at this time, informed him that his lab work does not show any acute findings, patient has leukocytosis downtrending. He states that he still feels the same amount of discomfort we will add additional medication, informed him we still need to obtain PVR understands and will states he will try 1800: Patient was signed to Dr. Richardson, patient pending reeval after more pain medications as well as PVR 04/19/25, Bob Arroyo. 34-year-old male with ongoing low back pain, previous CT scans lumbar spine and abdomen and pelvis negative, able to have bowel movements, attempted outpatient MRI but apparently he would not tolerate attempt. Had concerns that he is not urinating well. PVR requested. Prior outpatient meds analgesics, NSAIDs, and steroid pulse course. Assumed care. PVR not elevated. Oral Robaxin muscle relaxant trial. Home with friend. Advised to follow up for outpatient open MRI. Discharged home. <Ren Rojas MD - Last Filed: 04/20/25 02:16> Lab Data Labs: Lab Results 04/19/25 04/19/25 Range/Units 16:50 18:01 WBC 13.2 H (4.5-11.0) X10^3/uL RBC 4.43 L (4.5-5.9) X10^6/uL Hgb 12.5 L (13.5-17.5) g/dL Hct 38.0 L (41-53) % MCV 85.8 (80-100) fL MCH 28.3 (26-34) PG MCHC 33.0 (30-36) % RDW 12.3 (11.6-14.8) % Plt Count 412 H (150-400) X10^3/uL Neut % (Auto) 78.3 H (50-75) % Lymph % (Auto) 15.5 L (25-40) % [place] % (Auto) 5.5 (3-14) % Eos % (Auto) 0.1 L (2-4) % Baso % (Auto) 0.6 (0-2) % Neut # (Auto) 84214 H (2375-2622) /uL Lymph # (Auto) 2000 (5892-0962) /uL [place] # (Auto) 700 (0-900) /uL Eos # (Auto) 0 (0-450) /uL Baso # (Auto) 100 (0-100) /uL Sodium 140 (137-145) mmol/L Potassium 4.1 (3.4-5.1) mmol/L Chloride 107 (98-107) mmol/L Carbon Dioxide 23 (22-32) mmol/L BUN 17 (9-20) mg/dL Creatinine 0.87 (0.66-1.25) mg/dL Estimated GFR > 60 (>60) mL/min BUN/Creatinine Ratio 19.5 (6-22) Glucose 103 H (70-99) mg/dL Calcium 9.1 (8.4-10.2) mg/dL Total Bilirubin 0.7 (0.2-1.3) mg/dL AST 45 (17-59) IU/L ALT 40 (<50) IU/L Alkaline Phosphatase 59 (38-126) U/L Total Protein 7.9 (6.3-8.2) g/dL Albumin 4.7 (3.5-5.0) g/dL Globulin 3.2 (1.7-4.1) g/dL Albumin/Globulin Ratio 1.5 (1.0-2.8) Urine Color Yellow Urine Appearance Clear Urine pH 6.0 (4.5-8.0) Ur Specific [place] 1.025 (1.000-1.035) Urine Protein Trace H (Negative) Urine Glucose (UA) Negative (Negative) g/dL Urine Ketones Negative (NEGATIVE) Urine Occult Blood Trace-intact (Negative) Urine Nitrate Negative (Negative) Urine Bilirubin Negative (NEGATIVE) Urine Urobilinogen 4.0 H (0.2) E.U./dL Ur Leukocyte Esterase Negative (NEGATIVE) Urine RBC 0-1/hpf (0-5/HPF) Urine WBC 0-1/hpf (0-5/HPF) Ur Squamous Epith Cells 0-1 /hpf (0-5/HPF) Urine Bacteria Occasional (0-1) (None) Urine Mucus 2+ H (Negative) Ur Culture Indicated? Cult not indicated Vol Urine Centrifuged 10ml (spun) MDM Narrative Medical decision making narrative: Patient is a 34-year-old male with a history of low back pain presenting for exacerbation of this. He states that he has been seen here and worked up had CT scans that were negative was supposed to get an MRI by his primary care doctor however had an anxiety attack and was unable to complete this. He presents due to exacerbation of low back pain. He denies any cauda equina red flags. States that he feels like he has been having to push a little bit with urination but was also constipated until today. Had 3 bowel movement. 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 Review of symptoms does show that patient had a lumbar spine CT on 04/16/2025 as well as a abdomen and pelvis CT on 04/17/2025 both imaging showing no acute fracture or traumatic subluxation or acute findings, was noted degenerative changes around the L4-S1 otherwise unremarkable. He was able to stand bear weight ambulate unassisted here in the emergency department. He was given medication with significant improvement of his symptoms. 1747: Patient was re-evaluated, no new complaints at this time, informed him that his lab work does not show any acute findings, patient has leukocytosis downtrending. He states that he still feels the same amount of discomfort we will add additional medication, informed him we still need to obtain PVR understands and will states he will try 04/19/25, Bob Arroyo. 34-year-old male with ongoing low back pain, previous CT scans lumbar spine and abdomen and pelvis negative, able to have bowel movements, attempted outpatient MRI but apparently he would not tolerate attempt. Had concerns that he is not urinating well. PVR requested. Prior outpatient meds analgesics, NSAIDs, and steroid pulse course. Assumed care. PVR not elevated. Oral Robaxin muscle relaxant trial. Home with friend. Advised to follow up for outpatient open MRI. Discharged home. Discharge Plan Departure Patient Disposition: Home Clinical Impression: Lumbar radiculopathy Activity Restrictions/Additional Instructions: Ongoing low back pain with lumbar radiculopathy, unable to fit in MRI scanner on previous attempt. Consider open MRI in follow up. Previous trial of pain medication and gabapentin and steroid. Consider addition of muscle relaxant Robaxin, dose given, prescription sent to your pharmacy. Further follow up as an outpatient with your regular provider. Return earlier to this/nearest emergency department for any change worsening symptoms or any concerns prior. Prescriptions: New methocarbamol 750 mg tablet 750 mg PO TID Qty: 30 0RF No Action prednisone 10 mg tablets,dose pack See Rx Instructions .ROUTE .COMPLEX Qty: 21 0RF Rx Instructions: 6 tabs p.o. x1 day, then 5 tabs p.o. x1 day, then 4 tablets p.o. x1 day, then 3 tabs p.o. x1 day, then 2 tabs p.o. x1 day, then 1 tab p.o. x1 day gabapentin 300 mg capsule 300 mg PO TID Qty: 30 0RF oxycodone 5 mg tablet 5 mg PO QID PRN (Reason: pain) Qty: 14 0RF Stand Alone Forms: Patient Portal/API
[2025-04-19 17:06] LABS: Add Manual Diff / Slide Review NO; Basophils Absolute Auto 100 /uL (0-100); Basophils Percent Auto 0.6 % (0-2); Eosinophils Absolute Auto 0 /uL (0-450); Eosinophils Percent Auto 0.1 % (2-4); Hemoglobin 12.5 g/dL (13.5-17.5); Lymphocytes Absolute Auto 2000 /uL (1100-4500); Lymphocytes Percent Auto 15.5 % (25-40); Mean Corpuscular Hemoglobin 28.3 PG (26-34); Mean Corpuscular Volume 85.8 fL (80-100); Monocytes Absolute Auto 700 /uL (0-900); Monocytes Percent Auto 5.5 % (3-14); Neutrophils Absolute Auto 10300 /uL (1500-7000); Neutrophils Percent Auto 78.3 % (50-75); Platelet Count 412 X10^3/uL (150-400); Red Blood Cell Count 4.43 X10^6/uL (4.5-5.9); Red Cell Distribution Width 12.3 % (11.6-14.8); White Blood Cell Count 13.2 X10^3/uL (4.5-11.0)
[2025-04-19] MEDS: diazePAM 10 MG/2 ML SYRINGE 5 MG IV (17:10)
[2025-04-19] MEDS: MORPHINE 2 MG/ML INJ 4 MG IV (17:11)
[2025-04-19] MEDS: DEXAMETHASONE 10 MG/ML VIAL IV (17:12)
[2025-04-19 17:17] LABS: Alanine Aminotransferase 40 IU/L (<50); Albumin 4.7 g/dL (3.5-5.0); Albumin Globulin Ratio 1.5 (1.0-2.8); Alkaline Phosphatase 59 U/L (38-126); Aspartate Aminotransferase 45 IU/L (17-59); BUN Creatinine Ratio 19.5 (6-22); Bilirubin Total 0.7 mg/dL (0.2-1.3); Blood Urea Nitrogen 17 mg/dL (9-20); Calcium 9.1 mg/dL (8.4-10.2); Carbon Dioxide 23 mmol/L (22-32); Chloride 107 mmol/L (98-107); Estimated Glomerular Filt Rate > 60 mL/min (>60); Globulin 3.2 g/dL (1.7-4.1); Glucose 103 mg/dL (70-99); Sodium 140 mmol/L (137-145); Total Protein 7.9 g/dL (6.3-8.2)
[2025-04-19 17:18] LABS: HEMOLYSIS 57 (0-50); Potassium 4.1 mmol/L (3.4-5.1)
[2025-04-19 18:13] LABS: Appearance Urine UA CLEAR; Bilirubin Urine UA NEGATIVE (NEGATIVE); Color Urine UA YELLOW; Glucose Urine UA NEGATIVE (Negative); Ketones Urine UA NEGATIVE (NEGATIVE); Leukocyte Esterase Urine UA NEGATIVE (NEGATIVE); Nitrite Urine UA NEGATIVE (Negative); Occult Blood Urine UA TRACE-INTACT (Negative); Protein Urine UA TRACE (Negative); Specific Gravity Urine UA 1.025 (1.000-1.035)
[2025-04-19] MEDS: HYDROMORPHONE 0.5 MG INJ IV (18:16)
[2025-04-19 18:20] LABS: Bacteria Urine Occasional (0-1); Culture Indicated Urine Cult Not Indicated; Mucus Urine 2+ (Negative); RBC Urine 0-1/HPF (0-5/HPF); Squamous Epithelial Cell Urine 0-1 /HPF (0-5/HPF); Urine Volume 10mL (spun); WBC Urine 0-1/HPF (0-5/HPF)
[2025-04-19] MEDS: methocarbamoL 500 MG TABLET 750 MG PO (18:35)
== END 2025-04-19 21:26 | disposition home or self-care (01) ==
PROVIDERS: Student in an Organized Health Care Education/Training Program; Emergency Provider Emergency Medicine
DX: M54.16 Radiculopathy, lumbar region (principal)
CPT/HCPCS: 36415; 51798; 80053; 81001; 85025; 96374; 96375; 99284; J1100; J1171; J2270; J3360

== ENCOUNTER 2025-05-06 12:00 | Emergency (ER) | payer OTHER, SELFPAY ==
[2025-05-06 12:05] VITALS: BP 159/75; PULSE 71; RESP 18; TEMP 36.1; O2SAT 94; BMI 39.5
--- NOTE | 2025-05-06 14:08 | ED_ITS ---
HPI - Back Pain/Injury General Chief Complaint: Back Pain/Injury Stated Complaint: Acute sciatic pain in legs/herniated discs Time Seen by Provider: 05/06/25 13:41 Source: patient History of Present Illness HPI Narrative: Mr. Chua is a pleasant 34-year-old male with a past medical history of CAD, hypertension, hyperlipidemia, recent back pain who presents to the emergency department for worsening low back pain and left leg pain/numbness. Patient reports he had some baseline back pain however on April 14 he had a stretching type injury that caused acute severe low back pain/left glute pain radiating down the left leg. Since then he has been in the emergency department a total of 3 times and has been using pain medication. He had an MRI on April 21 and is scheduled to see a spine doctor on May 14, Dr. Fernando with [facility] room orthopedic surgeons. Patient's PCP had him stop taking opioids on Thursday and today his pain became even worse and he is now having swelling and tightness of the left leg. The patient has been unable to walk without a walker for the last 3 weeks and he has been spending the majority of his day lying on the couch as he has great difficulty with movement because of the pain. He has reported pain and numbness tingling going down the back of the thigh, radiating to the lateral side of the knee and down the foot with decreased sensation in his area as well. He denies any bowel or bladder dysfunction, numbness or tingling in the groin region, fevers, chills, history of IV drug use or direct trauma to the back. Reports that he has not taken his daily aspirin, lisinopril, atorvastatin over the last 3 weeks because these medications or in the kitchen and he has been having a hard time getting to them. The patient was able to show me his lumbar MRI report on his cell phone with a final impression of multilevel spondylosis. Large left central disc protrusion at L5-S1. Severe left lateral canal stenosis. Compression of the left S1 nerve root in the lateral canal. Moderate to severe central spinal canal stenosis at this level. Disc bulging and large central disc protrusion at L4-L5 moderate to severe central spinal canal stenosis. Related Data Previous Rx's ?Medication ?Instructions ?Recorded gabapentin 300 mg capsule 300 mg PO TID #30 caps 04/17 oxycodone 5 mg tablet 5 mg PO QID PRN pain #14 tab s 04/17/25 prednisone 10 mg tablets in a dose See Rx Instructions PO .COMPLEX 04/17/25 pack #21 ea methocarbamol 750 mg tablet 750 mg PO TID #30 tabs apixaban 5 mg tablet (Eliquis) 5 mg PO BID 21 days #42 tabs 05/06/25 apixaban 5 mg tablet (Eliquis) 10 mg (2 x 5 mg) PO Q12 H 7 days 05/06/25 #28 tabs oxycodone 5 mg tablet 5 mg PO Q6H PRN pain #12 tab s 05/06/25 Allergies Allergy/AdvReac Type Severity Reaction Status Date / Time No Known Drug Allergies Allergy Verified 05/06/25 12:05 Review of Systems Review of Systems ROS Unobtainable: All systems reviewed & are unremarkable except as noted in HPI and below Patient History Social History Smoking Status: Never smoker Smoking Status: Never smoker Exam Narrative Exam Narrative: GENERAL: 34 year old patient appears stated age. Overweight patient, in no acute distress, visibly uncomfortable with positions of comfort lying on right side or leaning on knees. HEAD: Atraumatic. Normocephalic. EYES: No scleral icterus. No injection or drainage. NECK: Trachea midline. Cervical ROM intact. CARDIOVASCULAR: Regular rate and rhythm. RESPIRATORY: ?Nonlabored respirations. ?Speaking in clear, full sentences. ?Clear to auscultation. Breath sounds equal bilaterally. No wheezes, rales, or rhonchi. ? GASTROINTESTINAL: Abdomen soft, non-tender, nondistended. Patient gave verbal consent for rectal exam, nurse airplane mechanic apprentice present, normal rectal tone. EXTREMITIES: Patient has 1+ pitting edema of left lower extremity and mild tightness of left calf with no focal tenderness, erythema or skin changes. Strong DP and PT pulses bilaterally. Sensation intact to light touch on bilateral lower extremities however he does report decreased/different sensation on the lateral left foot. Plantar flexion, dorsiflexion, knee flexion and extension intact bilaterally. Positive left leg raise. BACK: No midline spinal tenderness and no reproducible tenderness to palpation of the low back region, patient points to the left glute as the start of his subjective pain. NEURO: AOx3. ?Clear speech. ? SKIN: No rash or erythema of visible areas Initial Vital Signs Initial Vital Signs: Vital Signs Temperature 97.0 F L 05/06/25 12:05 Pulse Rate 71 05/06/25 12:05 Respiratory Rate 18 05/06/25 12:05 Blood Pressure 159/75 H 05/06/25 12:05 Pulse Oximetry 94 05/06/25 12:05 Oxygen Delivery Method Room Air 05/06/25 12:05 Course Orders Ordered: ED Orders 05/06/25 14:19 US periph venous low extrem lt Stat Discontinued Medications Apixaban (Apixaban 5 Mg Tablet) 10 mg PO NOW ONE Stop: 05/06/25 16:37 Last Admin: 05/06/25 16:43 Dose: 10 mg Documented By: [facility] Dexamethasone (Dexamethasone 4 Mg/Ml Vial) 10 mg IM NOW ONE Stop: 05/06/25 14:22 Last Admin: 05/06/25 14:42 Dose: 10 mg Documented By: Ketorolac Tromethamine (Ketorolac 30 Mg/Ml Vial) 30 mg IM NOW ONE Stop: 05/06/25 14:22 Last Admin: 05/06/25 14:43 Dose: 30 mg Documented By: Lidocaine (Lidocaine 5% Patch) 1 each TOP NOW ONE Stop: 05/06/25 14:22 Last Admin: 05/06/25 14:49 Dose: Not Given Documented By: Methocarbamol (Methocarbamol 500 Mg Tablet) 1,000 mg PO NOW ONE Stop: 05/06/25 14:22 Last Admin: 05/06/25 14:41 Dose: 1,000 mg Documented By: Oxycodone HCl (Oxycodone Ir 5 Mg Tablet) 5 mg PO NOW ONE Stop: 05/06/25 16:37 Last Admin: 05/06/25 16:44 Dose: 5 mg Documented By: [facility] Oxycodone/Acetaminophen (Oxycodone/Acetaminophen 5/325 Tablet) 1 tab PO NOW ONE Stop: 05/06/25 14:22 Last Admin: 05/06/25 14:41 Dose: 1 tab Documented By: Vital Signs Vital signs: Vital Signs - 8 hr 05/06/25 12:05 05/06/25 17:33 Temperature 97.0 F L Pulse Rate 71 66 Respiratory Rate 18 12 Blood Pressure 159/75 H 146/82 H Pulse Oximetry 94 98 Oxygen Delivery Method Room Air Room Air [facility] - Back Pain/Injury Medical Records Attestation: I reviewed the patient's medical records. [facility] Narrative Medical decision making narrative: 34-year-old male with a past medical history of CAD, hypertension, hyperlipidemia, recent back pain who presents to the emergency department for worsening low back pain and left leg pain/numbness. Differential diagnosis includes but isn't limited to lumbar radiculopathy, DVT, dependent edema, acute on chronic pain, etc. On exam patient is in no acute distress, nontoxic appearing however he is visibly uncomfortable and has difficulty finding a comfortable position. He is having no bowel or bladder incontinence, postvoid residual is 17, normal rectal tone, no saddle anesthesia, no acute weakness of the left lower extremity or other signs concerning for cauda equina syndrome. He is however having significant pain and reporting changes to sensation which has been going on for the last 3 weeks but worsening since stopping opioids 2 days ago. Discussed case with the attending ED physician, we will consult spine surgeon to discuss MRI results. We will treat with Decadron, oxycodone, Toradol, Robaxin, and obtain left lower extremity venous ultrasound. Left lower extremity peripheral venous ultrasound is positive for a popliteal DVT. Patient has no history of no blood clots. No active bleeding history of hemorrhagic stroke or recent surgery. He is agreeable to starting oral Eliquis. 1620: Spoke with on-call spine neurosurgery Dr. Freeman from [facility]. Discussed patient presentation, and also discussed prior MRI imaging results. Neurosurgeon does not recommend surgery at this time, they recommend patient's DVT be treated, no PT OT at this time, and follow up outpatient. Patient is agreeable to plan, pain improved, able to ambulate with walker but with great discomfort. I did offer admission for pain control, he would prefer to go home. Prescription for oxycodone sent to his pharmacy, he understands I am only able to prescribe a short course in his primary care doctor will need to prescribe a longer course if needed. He is additional medications to take as well. Discussed risks of Eliquis, stopping NSAIDs, strict ED return precautions for development of any chest pain or shortness of breath or any symptoms of cauda equina. Patient verbalized understanding of all information agreeable with the plan. He is stable for discharge home. Discharge Plan Departure Patient Disposition: Home Clinical Impression: Acute left lumbar radiculopathy Acute deep vein thrombosis (DVT) of popliteal vein Qualifiers: Laterality: left Qualified Code(s): I82.432 - Acute embolism and thrombosis of left popliteal vein Instructions: DI for Sciatica Activity Restrictions/Additional Instructions: Dear Mr. Chua, Thank you for coming to the emergency department. I am very sorry that you have been dealing with the pain. Today you were evaluated for worsening left leg pain and your ultrasound did reveal a blood clot in the left leg. It is very important to take the blood thinners as prescribed, the emergency room prescribes you your 1st month however you need to take blood thinners for a minimum of 3 months however this will be determined by your primary care doctor. Today I spoke with spine surgeon Dr. Freeman with [facility]. You may call to schedule a follow up appointment with them or you can follow up with your spine surgeon that you were already scheduled with. Please let your primary care doctor know immediately that you were in the ER you need to see a spine surgeon as soon as possible for further management and that you have a blood clot in your leg. Please rest, avoid strenuous exercise, but try your best to walk when possible. Do not massage the calf. Return to the ER immediately if you develop chest pain, shortness of breath, loss of control of your bowel or bladder, numbness of the groin, inability to move the leg or any other concerns. You can NOT take NSAID medications while on blood thinners, this means no naproxen, ibuprofen, Advil, Motrin, meloxicam, etc. Please use the prescribed oxycodone in addition to Tylenol for pain in addition to your muscle relaxers. Please follow up with your primary care doctor within the next 2-3 days for ER follow-up. (If you do not have a PCP you can call [phone]. ?to schedule an appointment with an [facility] Primary Care Provider) IF YOU DEVELOP ANY NEW OR WORSENING SYMPTOMS, RETURN TO THE ER! Please read the attached instructions, they highlight more specific treatments and interventions for you at home. Thank you for letting me participate in your care, Devika Montana PA-C Prescriptions: New oxycodone 5 mg tablet 5 mg PO Q6H PRN (Reason: pain) Qty: 12 0RF Eliquis 5 mg tablet 10 mg PO Q12H 7 Days Qty: 28 0RF Rx Instructions: Take for first 7 days. Eliquis 5 mg tablet 5 mg PO BID 21 Days Qty: 42 0RF Rx Instructions: Start on day 8. No Action prednisone 10 mg tablets,dose pack See Rx Instructions .ROUTE .COMPLEX Qty: 21 0RF Rx Instructions: 6 tabs p.o. x1 day, then 5 tabs p.o. x1 day, then 4 tablets p.o. x1 day, then 3 tabs p.o. x1 day, then 2 tabs p.o. x1 day, then 1 tab p.o. x1 day gabapentin 300 mg capsule 300 mg PO TID Qty: 30 0RF oxycodone 5 mg tablet 5 mg PO QID PRN (Reason: pain) Qty: 14 0RF methocarbamol 750 mg tablet 750 mg PO TID Qty: 30 0RF Stand Alone Forms: Patient Portal/API
--- NOTE | 2025-05-06 14:19 | DI.US.S_ITS ---
PROCEDURE: US PERIPH VENOUS LOW EXTREM LT INDICATIONS: pain, r/o dvt TECHNIQUE: Real-time imaging, as well as color and pulse Doppler interrogation, were performed of the lower extremity deep veins from the inguinal ligament to the popliteal fossa, with documentation of the visualized calf veins. COMPARISON: None. FINDINGS: There is thrombus in the popliteal vein. The common femoral, femoral, and the visualized calf veins are normally compressible, and free of intraluminal thrombus. Color and pulse Doppler demonstrate normal phasic intraluminal flow. There is normal augmentation response to distal compression maneuver. Catheter D material IMPRESSION: Positive exam. DVT in the popliteal vein. Dictated by: Chip Loco M.D. on 05/06/2025 at 14:45 Approved by: Chip Loco M.D. on 05/06/2025 at 14:46
[2025-05-06] MEDS: OXYCODONE/ACETAMINOPHEN 5/325 TABLET 1 TAB PO (14:41)
[2025-05-06] MEDS: DEXAMETHASONE 4 MG/ML VIAL 10 MG IM (14:42)
[2025-05-06] MEDS: KETOROLAC 30 MG/ML VIAL IM (14:43)
[2025-05-06] MEDS: APIXABAN 5 MG TABLET 10 MG PO (16:43)
[2025-05-06] MEDS: OXYCODONE IR 5 MG TABLET PO (16:44)
[2025-05-06 17:33] VITALS: BP 146/82; PULSE 66; RESP 12; O2SAT 98
== END 2025-05-06 17:34 | disposition home or self-care (01) ==
PROVIDERS: Emergency Provider Physician Assistant
DX: M54.16 Radiculopathy, lumbar region (principal); I82.432 Acute embolism and thrombosis of left popliteal vein
CPT/HCPCS: 51798; 93971; 96372; 99283; J1100; J1885

== ENCOUNTER 2025-05-10 14:18 | Emergency (ER) | payer OTHER, SELFPAY ==
[2025-05-10] VITALS (8 sets, daily range): BP systolic 133–203; BP diastolic 70–93; PULSE 97–113; RESP 16–25; TEMP 36.6–36.7; O2SAT 95–97; BMI 39.5
--- NOTE | 2025-05-10 14:36 | EKG_ITS ---
[address] [address] Test Date: 2025-05-10 Pat Name: Jose Rafael Chua Department: Room: Gender: Male Pi/Senior Research Associate: MARIA DEL CARMEN : 1990 Requested By: Order Number: [id number] Reading MD: Trevon Stewart Measurements Intervals [place] Rate: 86 P: 6 [place]: 110 QRS: 45 QRSD: 94 T: 41 QT: 342 QTc: 409 Interpretive Statements Sinus rhythm with sinus arrhythmia with short [place] Electronically Signed On 05-11-2025 18:04:39 PDT by Trevon Stewart
--- NOTE | 2025-05-10 14:36 | DI.RAD.S_ITS ---
PROCEDURE: XR CHEST 1V INDICATIONS: Shortness of breath TECHNIQUE: One view of the chest was acquired. COMPARISON: None. FINDINGS: Surgical changes and devices: None. Lungs and pleura: Lungs are clear. No pleural effusions or pneumothorax. Mediastinum: Mediastinal contours appear normal. Heart size is normal. Bones and chest wall: No suspicious bony lesions. Overlying soft tissues appear unremarkable. IMPRESSION: No acute cardiopulmonary abnormality is seen. Dictated by: Tomy Adams M.D. on 05/10/2025 at 16:01 Approved by: Tomy Adams M.D. on 05/10/2025 at 16:02
--- NOTE | 2025-05-10 14:36 | DI.CT.S_ITS ---
PROCEDURE: CT ANGIO CHEST PE PROTOCOL INDICATIONS: SOB TECHNIQUE: After the administration of intravenous contrast, 2 mm thick sections acquired from the pulmonary apices to the posterior costophrenic angles. 3-dimensional maximum intensity projection (MIP) coronal and sagittal reformats were then acquired through the thorax. For radiation dose reduction, the following was used: automated exposure control, adjustment of mA and/or kV according to patient size. COMPARISON: [facility], CT, CT ABDOMEN PELVIS W CON, 04/17/2025, 3:09. FINDINGS: Image quality: Diagnostic. Somewhat late in the bolus, but identifying pulmonary emboli. Pulmonary arteries: Pulmonary arteries are normal in size. There is definite thrombus present involving the lingula segment left upper lobe pulmonary artery--reference axial image 75 of series 5, as well as left lower lobe pulmonary arterial clot seen on image 79 of series 5. There is occlusive expansile thrombus in the origin of the posterior basal segment of the left lower lobe--image 91 of series 5. Lower Neck: No enlarged lymph nodes. Thyroid: No thyroid nodules which require sonographic follow up, per consensus guidelines. Axillae: No enlarged lymph nodes. Chest Wall: Unremarkable. Bones: Unremarkable. Lungs and Pleura: No pneumothorax or pleural effusions. 3 mm subpleural pulmonary nodule, right upper lobe, image 116 of series 6. 2 mm pleural based pulmonary nodule, left lower lobe, image 165. 3 mm pleural based pulmonary nodule, posterior left lower lobe, image 216. Heart: Heart size is normal. Normal RV LV ratio. No pericardial effusion. Thoracic Vessels: No aortic aneurysm. Mediastinum and Mary: No enlarged lymph nodes. Esophagus: No wall thickening. No hiatal hernia. Upper Abdomen: Visualized upper abdomen solid organs and bowel loops appear normal. IMPRESSION: 1. Acute pulmonary emboli: Although bolus timing is suboptimal, there is definite acute peripheral pulmonary embolus involving multiple relatively small branch vessels in the left lung. 2. No acute cardiopulmonary process. 3. There are 3 tiny pulmonary nodules identified. Comment: In this patient with acute pulmonary emboli, would recommend 12 month follow-up CT of these pulmonary nodules. Please see chart below. Fleischner Society criteria for SOLID lung nodule followup. Nodule size (mm)Low-risk patientHigh-risk patient<6 (single or multiple)No routine followup.Optional CT at 12 months. 6-8 (single or multiple)CT at 6-12 months, then optional CT at 18-24 mo.CT at 6-12 months, then CT at 18-24 months. >8 (single)CT at 3 months, PET-CT, or biopsy. Same as for low-risk pts. >8 (multiple)CT at 3-6 months, then optional CT at 18-24 mo.CT at 3-6 months, then CT at 18-24 months. Fleischner Society criteria for SUB-SOLID lung nodule followup. Solitary pure ground-glass nodules<6 mm (ground glass or part solid)No followup needed. 6 mm or larger (ground glass)CT at 6-12 months to confirm persistence, then CT every 2 years until 5 years.6 mm or larger (part solid)CT at 3-6 months to confirm persistence, then annual CT until 5 years if unchanged and solid component remains <6 mm. Multiple sub-solid nodules<6 mmCT at 3-6 months, then CT consider at 2 & 4 years for high risk patients. [address] at 3-6 months. Subsequent management based on most suspicious lesions. Recommendations do not apply to lung cancer screening, patients with immunosuppression, or patients with known primary cancer. Dictated by: Tomy Adams M.D. on 05/10/2025 at 16:02 Approved by: Tomy Adams M.D. on 05/10/2025 at 16:08
--- NOTE | 2025-05-10 16:41 | ED_ITS ---
HPI - Extremity Problem General Chief complaint: Extremity Problem,Nontraumatic Stated complaint: Back Pain, L leg pain Time Seen by Provider: 05/10/25 16:37 Source: patient Mode of arrival: Ambulatory History of Present Illness HPI Narrative: Patient here with mother. Complains of sciatica leg pain and has been immobile since April 14. He was seen here few days ago and diagnosed with a leg DVT and placed on Eliquis. He did have follow up with primary care today and sent here for evaluation for pulmonary embolism. Patient denies any chest pain or shortness of breath. He largely complains of his sciatic pain in. He does have history PA in 2022. Related Data Previous Rx's ?Medication ?Instructions ?Recorded gabapentin 300 mg capsule 300 mg PO TID #30 caps 04/17 oxycodone 5 mg tablet 5 mg PO QID PRN pain #14 tab s 04/17/25 prednisone 10 mg tablets in a dose See Rx Instructions PO .COMPLEX 04/17/25 pack #21 ea methocarbamol 750 mg tablet 750 mg PO TID #30 tabs apixaban 5 mg tablet (Eliquis) 5 mg PO BID 21 days #42 tabs 05/06/25 oxycodone 5 mg tablet 5 mg PO Q6H PRN pain #12 tab s 05/06/25 diazepam 10 mg tablet (Valium) 10 mg PO TID PRN muscle spasm #15 05/10/25 tabs Allergies Allergy/AdvReac Type Severity Reaction Status Date / Time No Known Drug Allergies Allergy Verified 05/10/25 14:22 Review of Systems Review of Systems Narrative: GENERAL: Negative chills, fatigue, malaise, fever, sweats. HEENT: Negative sinus pain, ear pain, sore throat RESPIRATORY: Negative dyspnea, cough CARDIOVASCULAR: Negative chest pain, palpitations GASTROINTESTINAL: Negative vomiting, nausea, abdominal pain : Negative dysuria, frequency, hematuria MUSCULOSKELETAL: Positive muscle or bony pain SKIN: Negative rash, skin lesions NEUROLOGIC: Negative weakness, numbness ROS Unobtainable: All systems reviewed & are unremarkable except as noted in HPI and below Exam Narrative Exam Narrative: GENERAL: in no distress, not toxic not dyspneic HEAD: Normocephalic. EYES: Pupils equal round ENT: Mucous membranes moist. NECK: Trachea midline. CARDIOVASCULAR: Regular rate and rhythm, tachycardic RESPIRATORY: Clear to auscultation. Breath sounds equal bilaterally. No wheezes, rales, or rhonchi. GASTROINTESTINAL: Abdomen soft, non-tender EXTREMITIES: No gross deformities. Patient favoring his left lower leg keeping it flexed slightly at hip and knee. Due to ongoing low back pain with sciatica. BACK: No flank tenderness. There is left paralumbar muscle tenderness. Increased pain with movement of the left leg. NEURO: AOx4. Clear speech SKIN: Warm and dry PSYCH: Not anxious, is cooperative Initial Vital Signs Initial Vital Signs: Vital Signs Temperature 98 F 05/10/25 14:22 Pulse Rate 113 H 05/10/25 14:22 Respiratory Rate 20 05/10/25 14:22 Blood Pressure 143/75 H 05/10/25 14:22 Pulse Oximetry 95 05/10/25 14:22 Oxygen Delivery Method Room Air 05/10/25 14:22 Course Orders Ordered: Discontinued Medications Acetaminophen (Acetaminophen 325 Mg Tablet) 975 mg PO NOW ONE Stop: 05/10/25 14:42 Last Admin: 05/10/25 18:06 Dose: Not Given Documented By: PILAR Diazepam (Diazepam 10 Mg/2 Ml Syringe) 5 mg IV NOW ONE Stop: 05/10/25 17:46 Last Admin: 05/10/25 17:52 Dose: 5 mg Documented By: PILAR Hydromorphone HCl (Hydromorphone 1 Mg Inj) 1 mg IV NOW ONE Stop: 05/10/25 16:38 Last Admin: 05/10/25 17:03 Dose: 1 mg Documented By: PILAR Sodium Chloride (Normal Saline 0.9%) 1,000 mls @ 1,000 mls/hr IV BOLUS ONE Stop: 05/10/25 17:42 Last Infusion: 05/10/25 18:06 Dose: Infused Documented By: Admin: 05/10/25 17:03 Dose: 1,000 mls/hr Documented By: PILAR Vital Signs Vital signs: Vital Signs - 8 hr 05/10/25 14:22 Temperature 98 F Pulse Rate 113 H Respiratory Rate 20 Blood Pressure 143/75 H Pulse Oximetry 95 Oxygen Delivery Method Room Air MDM - Extremity (Nontraumatic) Lab Data 05/10/25 17:18 05/10/25 17:18 Labs: Lab Results 05/10/25 Range/Units 17:18 WBC 10.0 (4.5-11.0) X10^3/uL RBC 4.93 (4.5-5.9) X10^6/uL Hgb 14.2 (13.5-17.5) g/dL Hct 42.5 (41-53) % MCV 86.1 (80-100) fL MCH 28.8 (26-34) PG MCHC 33.4 (30-36) % RDW 12.5 (11.6-14.8) % Plt Count 375 (150-400) X10^3/uL Neut % (Auto) 68.3 (50-75) % Lymph % (Auto) 22.2 L (25-40) % [place] % (Auto) 6.2 (3-14) % Eos % (Auto) 2.3 (2-4) % Baso % (Auto) 1.0 (0-2) % Neut # (Auto) 6800 (4728-8928) /uL Lymph # (Auto) 2200 (4500-5308) /uL [place] # (Auto) 600 (0-900) /uL Eos # (Auto) 200 (0-450) /uL Baso # (Auto) 100 (0-100) /uL PT 15.1 H (9.4-12.5) SECONDS INR 1.3 (0.9-1.3) Sodium 139 (137-145) mmol/L Potassium 4.1 (3.4-5.1) mmol/L Chloride 104 (98-107) mmol/L Carbon Dioxide 23 (22-32) mmol/L BUN 13 (9-20) mg/dL Creatinine 0.89 (0.66-1.25) mg/dL Estimated GFR > 60 (>60) mL/min BUN/Creatinine Ratio 14.6 (6-22) Glucose 94 (70-99) mg/dL Lactate 1.9 (0.7-2.1) mmol/L Calcium 9.5 (8.4-10.2) mg/dL Total Bilirubin 0.9 (0.2-1.3) mg/dL AST 39 (17-59) IU/L ALT 38 (<50) IU/L Alkaline Phosphatase 68 (38-126) U/L Troponin I < 0.012 (0.01-0.034) ng/mL NT-Pro-B Natriuret Pep < 20 (<125) pg/mL Total Protein 7.9 (6.3-8.2) g/dL Albumin 4.6 (3.5-5.0) g/dL Globulin 3.3 (1.7-4.1) g/dL Albumin/Globulin Ratio 1.4 (1.0-2.8) Imaging Data Chest x-ray: Radiologist's Impression: [address] [address] XRay Report Signed Patient: Jose Rafael Chua MR#: [id number] : 1990 Acct:[id number] Age/Sex: 34 / M Date of Service: 05/10/25 Loc: ED Accession Number: [id number] Procedure: XR chest 1V Ordering Provider: Karel Leslie MD PROCEDURE: XR CHEST 1V INDICATIONS: Shortness of breath TECHNIQUE: One view of the chest was acquired. COMPARISON: None. FINDINGS: Surgical changes and devices: None. Lungs and pleura: Lungs are clear. No pleural effusions or pneumothorax. Mediastinum: Mediastinal contours appear normal. Heart size is normal. Bones and chest wall: No suspicious bony lesions. Overlying soft tissues appear unremarkable. IMPRESSION: No acute cardiopulmonary abnormality is seen. Dictated by: Tomy Adams M.D. on 05/10/2025 at 16:01 Approved by: Tomy Adams M.D. on 05/10/2025 at 16:02 CT scan - chest: Radiologist's Impression: [address] [address] [address] Scan Report Signed Patient: Jose Rafael Chua MR#: [id number] : 1990 Acct:[id number] Age/Sex: 34 / M Date of Service: 05/10/25 Loc: ED Accession Number: [id number] Procedure: CT angio chest PE protocol Ordering Provider: Karel Leslie MD PROCEDURE: CT ANGIO CHEST PE PROTOCOL INDICATIONS: SOB TECHNIQUE: After the administration of intravenous contrast, 2 mm thick sections acquired from the pulmonary apices to the posterior costophrenic angles. 3-dimensional maximum intensity projection (MIP) coronal and sagittal reformats were then acquired through the thorax. For radiation dose reduction, the following was used: automated exposure control, adjustment of mA and/or kV according to patient size. COMPARISON: [facility], CT, CT ABDOMEN PELVIS W CON, 04/17/2025, 3:09. FINDINGS: Image quality: Diagnostic. Somewhat late in the bolus, but identifying pulmonary emboli. Pulmonary arteries: Pulmonary arteries are normal in size. There is definite thrombus present involving the lingula segment left upper lobe pulmonary artery--reference axial image 75 of series 5, as well as left lower lobe pulmonary arterial clot seen on image 79 of series 5. There is occlusive expansile thrombus in the origin of the posterior basal segment of the left lower lobe--image 91 of series 5. Lower Neck: No enlarged lymph nodes. Thyroid: No thyroid nodules which require sonographic follow up, per consensus guidelines. Axillae: No enlarged lymph nodes. Chest Wall: Unremarkable. Bones: Unremarkable. Lungs and Pleura: No pneumothorax or pleural effusions. 3 mm subpleural pulmonary nodule, right upper lobe, image 116 of series 6. 2 mm pleural based pulmonary nodule, left lower lobe, image 165. 3 mm pleural based pulmonary nodule, posterior left lower lobe, image 216. Heart: Heart size is normal. Normal RV LV ratio. No pericardial effusion. Thoracic Vessels: No aortic aneurysm. Mediastinum and Mary: No enlarged lymph nodes. Esophagus: No wall thickening. No hiatal hernia. Upper Abdomen: Visualized upper abdomen solid organs and bowel loops appear normal. IMPRESSION: 1. Acute pulmonary emboli: Although bolus timing is suboptimal, there is definite acute peripheral pulmonary embolus involving multiple relatively small branch vessels in the left lung. 2. No acute cardiopulmonary process. 3. There are 3 tiny pulmonary nodules identified. Comment: In this patient with acute pulmonary emboli, would recommend 12 month follow-up CT of these pulmonary nodules. Please see chart below. Fleischner Society criteria for SOLID lung nodule followup. Nodule size (mm)Low-risk patientHigh-risk patient<6 (single or multiple)No routine followup.Optional CT at 12 months. 6-8 (single or multiple)CT at 6-12 months, then optional CT at 18-24 mo.CT at 6-12 months, then CT at 18-24 months. >8 (single)CT at 3 months, PET-CT, or biopsy. Same as for low-risk pts. >8 (multiple)CT at 3-6 months, then optional CT at 18-24 mo.CT at 3-6 months, then CT at 18-24 months. Fleischner Society criteria for SUB-SOLID lung nodule followup. Solitary pure ground-glass nodules<6 mm (ground glass or part solid)No followup needed. 6 mm or larger (ground glass)CT at 6-12 months to confirm persistence, then CT every 2 years until 5 years.6 mm or larger (part solid)CT at 3-6 months to confirm persistence, then annual CT until 5 years if unchanged and solid component remains <6 mm. Multiple sub-solid nodules<6 mmCT at 3-6 months, then CT consider at 2 & 4 years for high risk patients. [address] at 3-6 months. Subsequent management based on most suspicious lesions. Recommendations do not apply to lung cancer screening, patients with immunosuppression, or patients with known primary cancer. Dictated by: Tomy Adams M.D. on 05/10/2025 at 16:02 Approved by: Tomy Adams M.D. on 05/10/2025 at 16:08 [facility] Narrative Medical decision making narrative: Patient here with mother. Complains of sciatica leg pain and has been immobile since April 14. He was seen here few days ago and diagnosed with a leg DVT and placed on Eliquis. He did have follow up with primary care today and sent here for evaluation for pulmonary embolism. Patient denies any chest pain or shortness of breath. He largely complains of his sciatic pain in. He does have history PA in 2022. After history and exam, EKG CBC CMP CT chest Dilaudid normal saline [facility] Medical records reviewed: May 06, 2025 ER visit here Differential considered: Includes but not limited to pulmonary embolism DVT Lab Test results independently reviewed as above. Pertinent findings: WBC 13.2 hemoglobin 12.5 BUN 17 creatinine 0.87 troponin less than 0.012 BNP less than 20 Independently reviewed EKG sinus rhythm rate [address] elevation or depression Imaging studies independently reviewed: Chest x-ray no acute finding, CT chest PEs present Consultations: 4:30 p.m.. I spoke with Dr. Stewart, hospitalist, regarding disposition for patient being on Eliquis already, who would like hematology oncology contacted 5:01 p.m.. I spoke with hematology oncology, , [facility], he does not feel this is anticoagulation therapy failure patient has only been on this for 3 days. They pulmonary embolism may have been there for he started Eliquis. However if patient worsens in the next upcoming days with shortness of breath or increased leg pain or swelling then would likely be failure of therapy. Patient should stay the course with Eliquis. No changes of medications or treatment plan. No indication for admission at this time. Re-evaluations: 4:47 p.m.. Updated patient results. Dilaudid has been ordered for his sciatic pain. 5:49 p.m.. Reviewed with patient and mother my discussion with Hematology Oncology and hospitalist. At this time this is not considered failure of therapy with medication and the pulmonary embolus may have been there before start of the Eliquis. Return precautions reviewed with him and mother. A thing worsening with leg pain or swelling or shortness of breath and return. 5:55 p.m.. Reviewed with patient to stop cyclobenzaprine and methocarbamol, he is on Eliquis and I will start him on Valium for the spasms he is having to his leg. He agrees with this plan. Return precautions reviewed. Mother is driving. 6:24 p.m.. Patient states pain is much better. Return precautions reviewed. They desire discharge home. Discussion: Appropriate for discharge home. Exam is reassuring. Return precautions reviewed patient. Patient states his main complaint is his sciatica pain. Diagnosis: Pulmonary embolism Discharge Plan Departure Patient Disposition: Home Clinical Impression: Pulmonary embolism Qualifiers: Pulmonary embolism type: unspecified Chronicity: acute Acute cor pulmonale presence: without acute cor pulmonale Qualified Code(s): I26.99 - Other pulmonary embolism without acute cor pulmonale Instructions: DI for Pulmonary Embolism Activity Restrictions/Additional Instructions: Please do not take cyclobenzaprine or your methocarbamol, please continue Eliquis. Hematology services was contacted [facility]. Prescription for Valium has been provided for you to help for the sciatica pain. Please see your family doctor for re-evaluation. Return if worse if any questions or concerns Prescriptions: New diazepam [Valium] 10 mg tablet 10 mg PO TID PRN (Reason: muscle spasm) Qty: 15 0RF No Action prednisone 10 mg tablets,dose pack See Rx Instructions .ROUTE .COMPLEX Qty: 21 0RF Rx Instructions: 6 tabs p.o. x1 day, then 5 tabs p.o. x1 day, then 4 tablets p.o. x1 day, then 3 tabs p.o. x1 day, then 2 tabs p.o. x1 day, then 1 tab p.o. x1 day gabapentin 300 mg capsule 300 mg PO TID Qty: 30 0RF oxycodone 5 mg tablet 5 mg PO QID PRN (Reason: pain) Qty: 14 0RF methocarbamol 750 mg tablet 750 mg PO TID Qty: 30 0RF oxycodone 5 mg tablet 5 mg PO Q6H PRN (Reason: pain) Qty: 12 0RF Eliquis 5 mg tablet 5 mg PO BID 21 Days Qty: 42 0RF Rx Instructions: Start on day 8. Stand Alone Forms: Patient Portal/API
[2025-05-10] MEDS: SODIUM CHLORIDE 0.9% 1,000 ML 1000 ML IV (17:03)
[2025-05-10] MEDS: HYDROMORPHONE 1 MG INJ IV (17:03)
[2025-05-10 17:35] LABS: Add Manual Diff / Slide Review NO; Hematocrit 42.5 % (41-53); Hemoglobin 14.2 g/dL (13.5-17.5); Lymphocytes Absolute Auto 2200 /uL (1100-4500); Mean Corpuscular HGB Conc 33.4 % (30-36); Mean Corpuscular Hemoglobin 28.8 PG (26-34); Mean Corpuscular Volume 86.1 fL (80-100); Platelet Count 375 X10^3/uL (150-400)
[2025-05-10 17:37] LABS: INR 1.3 (0.9-1.3); Prothrombin Time 15.1 SECONDS (9.4-12.5)
[2025-05-10 17:42] LABS: Lactate (Lactic Acid) 1.9 mmol/L (0.7-2.1)
[2025-05-10 17:43] LABS: Alanine Aminotransferase 38 IU/L (<50); Albumin 4.6 g/dL (3.5-5.0); Albumin Globulin Ratio 1.4 (1.0-2.8); Alkaline Phosphatase 68 U/L (38-126); Blood Urea Nitrogen 13 mg/dL (9-20); Calcium 9.5 mg/dL (8.4-10.2); Carbon Dioxide 23 mmol/L (22-32); Chloride 104 mmol/L (98-107); Estimated Glomerular Filt Rate > 60 mL/min (>60); Globulin 3.3 g/dL (1.7-4.1); Glucose 94 mg/dL (70-99); Sodium 139 mmol/L (137-145); Total Protein 7.9 g/dL (6.3-8.2)
[2025-05-10 17:44] LABS: HEMOLYSIS 69 (0-50); Potassium 4.1 mmol/L (3.4-5.1)
[2025-05-10 17:55] LABS: NT-proBNP (BNP-Adult 18+) < 20 pg/mL (<125); Troponin I < 0.012 ng/mL (0.01-0.034)
--- NOTE | 2025-05-10 18:47 | PC.NURSE ---
Pt reports ongoing lower back pain and leg pain that started when he was stretching. Pt reports throbbing in foot and inability to get comfortable. Pt states pain shoots down his leg from his lower leg.
--- NOTE | 2025-05-10 18:50 | PC.NURSE ---
Pt reports improvement in pain after 5mg IV Valium. pt reports shooting pain has transitioned to a mild throbbing sensation in his left foot.
== END 2025-05-10 18:53 | disposition home or self-care (01) ==
PROVIDERS: Emergency Provider Emergency Medicine
DX: I26.99 Other pulmonary embolism without acute cor pulmonale (principal); M79.605 Pain in left leg; I82.432 Acute embolism and thrombosis of left popliteal vein
CPT/HCPCS: 71045; 71275; 80053; 83605; 83880; 84484; 85025; 85610; 93005; 96361; 96374; 96375; 99284; J1171; J3360; Q9967